=== PATIENT | female | born 1945 | race Native Hawaiian/Other Pacific Islander ===

== ENCOUNTER 2020-03-10 14:12 | Outpatient (CLI) | payer OTHER | END 2020-03-10 22:03 | disposition home or self-care (01) | LOC: MRI 14:12 | PROVIDERS: ATTEND Orthopaedic Surgery Orthopaedic Surgery of the Spine | DX: M54.5 Low back pain (principal) ==

== ENCOUNTER 2020-06-11 16:08 | Outpatient (CLI) | payer OTHER ==
[2020-06-11 16:35] LABS: POTASSIUM 3.8 mmol/L (3.6-5.2); SODIUM 141 mmol/L (136-145)
[2020-06-11 16:42] LABS: PLATELET COUNT 292 K/uL (152-353)
== END 2020-06-11 22:16 | disposition home or self-care (01) ==
LOC: RAD 16:08
PROVIDERS: ATTEND Nurse Practitioner Family
DX: R07.89 Other chest pain (principal); R06.02 Shortness of breath
CPT/HCPCS: 36415; 80053; 82550; 82553; 84484; 85027; 86140

== ENCOUNTER 2020-08-07 14:26 | Outpatient (CLI) | payer OTHER | END 2020-08-07 22:42 | disposition home or self-care (01) | LOC: MRI 14:26 | PROVIDERS: ATTEND Podiatrist | DX: M76.61 Achilles tendinitis, right leg (principal) ==

== ENCOUNTER 2021-07-13 09:58 | Outpatient (CLI) | payer OTHER | END 2021-07-13 18:53 | disposition home or self-care (01) | LOC: MAMMO 09:58 | PROVIDERS: ATTEND Internal Medicine | DX: Z12.31 Encounter for screening mammogram for malignant neoplasm of breast (principal) ==

== ENCOUNTER 2021-09-17 11:11 | Outpatient (CLI) | payer OTHER | END 2021-09-17 19:22 | disposition home or self-care (01) | LOC: RAD 11:11 | PROVIDERS: ATTEND Internal Medicine | DX: M85.88 Other specified disorders of bone density and structure, other site (principal) ==

== ENCOUNTER 2022-07-20 10:58 | Outpatient (CLI) | payer OTHER | END 2022-07-20 18:55 | disposition home or self-care (01) | LOC: MAMMO 10:58 | PROVIDERS: ATTEND Internal Medicine | DX: Z12.31 Encounter for screening mammogram for malignant neoplasm of breast (principal) ==

== ENCOUNTER 2022-07-27 09:52 | Outpatient (CLI) | payer OTHER | END 2022-07-27 19:07 | disposition home or self-care (01) | LOC: LABW 09:52 | PROVIDERS: ATTEND Physician Assistant | DX: R15.9 Full incontinence of feces (principal); R19.7 Diarrhea, unspecified; K59.00 Constipation, unspecified; T78.1XXA Other adverse food reactions, not elsewhere classified, initial encounter; Z86.010 Personal history of colon polyps; Z80.0 Family history of malignant neoplasm of digestive organs; Z09 Encounter for follow-up examination after completed treatment for conditions other than malignant neoplasm | CPT/HCPCS: 82656; 83630; 87328; 87329 ==

== ENCOUNTER 2022-11-04 08:29 | Outpatient (CLI) | payer OTHER | END 2022-11-04 19:14 | disposition home or self-care (01) | LOC: MRI 08:29 | PROVIDERS: ATTEND Internal Medicine | DX: R41.0 Disorientation, unspecified (principal); F03.90 Unspecified dementia, unspecified severity, without behavioral disturbance, psychotic disturbance, mood disturbance, and anxiety; R41.3 Other amnesia | CPT/HCPCS: 36415; 82565; 84520; A9576 ==